=== PATIENT | female | born 1995 | race Caucasian/White ===

== ENCOUNTER → 2016-12-14 | Outpatient (CLI) | payer BC ==
--- NOTE | 2016-12-15 08:47 | REP ---
MAXILLOFACIAL CT WITHOUT CONTRAST: HISTORY: Right mandible tumor. COMPARISON: 08/03/2016. Minimal mucosal thickening is present in the maxillary and left sphenoid sinuses. The remaining sinuses are clear. The ostiomeatal units are patent. The middle and inferior nasal turbinates are partially paradoxical. There is sánchez bullosa of the middle nasal turbinates. The nasal septum is midline. The cribriform plate, medial quinn of the orbits and optic canals are intact. The carotid canals form a segment of the posterolateral quinn of the sphenoid sinus. There is thickening of the posterior body and angle of the right mandible at the site of the previously noted destructive lesion. This area contains mineralized bone matrix. The overlying cortex is thin however intact. This area measures approximately 1.1 cm in transverse x 2.8 cm in AP x 2.8 cm in cephalocaudal dimensions and is unchanged compared to the previous study. There is no periosteal reaction. There is no associated soft tissue component. The surrounding soft tissues are intact. IMPRESSION: 1. Sinus mucosal thickening as described above. 2. There is no recurrent tumor at the site of the previously noted destructive lesion in the posterior body and angle of the right mandible. Signed by Doug Moura MD 12/15/2016 08:56 A
== END ==
LOC: M RAD 17:24
DX: D16.5 Benign neoplasm of lower jaw bone (principal)

== ENCOUNTER → 2017-02-10 | Outpatient (CLI) | payer BC ==
[2017-02-10 20:10] LABS: BASO % 0.7 % (0.0-1.0); EOS # 0.1 K/mm3 (0.0-0.50); EOS % 1.1 % (0.0-3.0); LARGE UNSTAINED CELL # 0.1 K/mm3 (0.0-0.4); LARGE UNSTAINED CELL % 1.6 % (0.0-4.0); LYMPH # 2.5 K/mm3 (1.5-6.5); LYMPH % 32.8 % (24.0-44.0); MEAN CORPUSCULAR HEMOGLOBIN 28.4 pg (27.0-33.0); MEAN CORPUSCULAR HGB CONC 32.6 g/dl (32.0-36.5); MEAN CORPUSCULAR VOLUME 87.1 fl (80.0-96.0); MONO # 0.4 K/mm3 (0.0-0.8); MONO % 6.2 % (0.0-5.0); NEUTROPHILS # 4.1 K/mm3 (1.8-7.7); NEUTROPHILS % 57.6 % (36.0-66.0); PLATELET COUNT, AUTOMATED 175 k/mm3 (150-450); RED CELL DISTRIBUTION WIDTH 14.9 % (11.5-14.5); WHITE BLOOD COUNT 7.2 K/mm3 (4.0-10.0)
[2017-02-10 20:43] LABS: VITAMIN B12 LEVEL 1467 PG/ML (247-911)
[2017-02-10 20:53] LABS: ALBUMIN 4.1 GM/DL (3.2-5.2); ALBUMIN/GLOBULIN RATIO 1.46 (1.00-1.93); ALKALINE PHOSPHATASE 109 U/L (45-117); ALT/SGPT 90 U/L (12-78); ANION GAP 11 MEQ/L (8-16); AST/SGOT 41 U/L (15-37); BILIRUBIN,TOTAL 0.5 MG/DL (0.2-1.0); BLOOD UREA NITROGEN 8 MG/DL (7-18); CALCIUM LEVEL 9.2 MG/DL (8.5-10.1); CARBON DIOXIDE LEVEL 27 MEQ/L (21-32); CHLORIDE LEVEL 99 MEQ/L (98-107); CREATININE FOR GFR 0.86 MG/DL (0.55-1.02); FERRITIN 36 NG/ML (8-252); GLOMERULAR FILTRATION RATE > 60.0 (>60); GLUCOSE, FASTING 86 MG/DL (70-105); PERCENT SATURATION 18.3 % (13.2-37.4); PHOSPHORUS LEVEL 3.6 MG/DL (2.5-4.9); POTASSIUM SERUM 3.6 MEQ/L (3.5-5.1); SODIUM LEVEL 137 MEQ/L (136-145); TOTAL IRON BINDING CAPACITY 268 UG/DL (250-450); TOTAL PROTEIN 6.9 GM/DL (6.4-8.2)
[2017-02-12 10:11] LABS: PRETREATED FOLATE FOR RBCFOL 17.8 NG/ML
== END ==
LOC: M WUC 17:56
PROVIDERS: ATTEND Surgery
DX: K91.2 Postsurgical malabsorption, not elsewhere classified (principal); Z98.84 Bariatric surgery status

== ENCOUNTER → 2017-03-24 | Outpatient (CLI) | payer BC ==
--- NOTE | 2017-03-24 18:36 | REP ---
MAXILLOFACIAL CT WITHOUT CONTRAST: HISTORY: Tumor. COMPARISON: 12/14/2016 Minimal mucosal thickening is present in the maxillary sinuses. Mild mucosal thickening is present in the right sphenoid sinus. The remaining sinuses are clear. The ostiomeatal units are patent. The middle and inferior nasal turbinates are partially paradoxical. There is sánchez bullosa of the middle nasal turbinates. The nasal septum is midline. The cribriform plate, medial quinn of the orbits and optic canals are intact. The carotid canals form a segment of the posterolateral quinn of the sphenoid sinus. There is thickening of the posterior body and angle of the right mandible at the site of a previously noted destructive lesion. The area contains mineralized bone matrix. The overlying cortex is thin, however, intact. This area measures approximately 1.1 cm in transverse x 2.8 cm in AP x 2.6 cm in cephalocaudal dimensions and is unchanged in size compared to the previous study. There is no periosteal bone reaction. There is no soft tissue component. The surrounding tissues are intact. IMPRESSION: 1. Sinus mucosal thickening as described above. 2. There is no recurrent tumor at the site of a previously noted destructive lesion in the posterior body and angle of the right mandible. Signed by Doug Moura MD 03/24/2017 07:20 P
== END ==
LOC: M RAD 17:15
PROVIDERS: ATTEND Nurse Practitioner Family
DX: D16.5 Benign neoplasm of lower jaw bone (principal)

== ENCOUNTER → 2017-09-30 | Outpatient (CLI) | payer BC | LOC: M RAD 16:37 | DX: C96.6 Unifocal Langerhans-cell histiocytosis (principal) | CPT/HCPCS: 77075 ==

== ENCOUNTER → 2018-01-03 | Outpatient (CLI) | payer BC ==
[2018-01-03 19:42] LABS: BASO # 0.1 10^3/uL (0.0-0.2); BASO % 0.6 % (0.0-1.0); EOS % 0.5 % (0.0-3.0); HEMATOCRIT 40.1 % (36.0-47.0); HEMOGLOBIN 13.4 g/dl (12.0-15.5); IMMATURE GRANULOCYTE % 0.2 % (0-3.0); LYMPH # 2.9 10^3/uL (1.5-6.5); LYMPH % 34.8 % (24.0-44.0); MEAN CORPUSCULAR HEMOGLOBIN 31.1 pg (27.0-33.0); MEAN CORPUSCULAR HGB CONC 33.4 g/dl (32.0-36.5); MONO # 0.4 10^3/uL (0.0-0.8); MONO % 5.2 % (0.0-5.0); NEUTROPHILS # 4.9 10^3/uL (1.8-7.7); NEUTROPHILS % 58.7 % (36.0-66.0); PLATELET COUNT, AUTOMATED 265 10^3/uL (150-450); RED BLOOD COUNT 4.31 10^6/uL (4.00-5.40); RED CELL DISTRIBUTION WIDTH 12.3 % (11.5-14.5); WHITE BLOOD COUNT 8.3 10^3/uL (4.0-10.0)
[2018-01-03 20:07] LABS: ALBUMIN 4.2 GM/DL (3.2-5.2); ALBUMIN/GLOBULIN RATIO 1.35 (1.00-1.93); ALKALINE PHOSPHATASE 109 U/L (45-117); ALT/SGPT 23 U/L (12-78); ANION GAP 5 MEQ/L (8-16); AST/SGOT 13 U/L (7-37); BILIRUBIN,TOTAL 0.4 MG/DL (0.2-1.0); BLOOD UREA NITROGEN 9 MG/DL (7-18); CALCIUM LEVEL 9.3 MG/DL (8.5-10.1); CARBON DIOXIDE LEVEL 31 MEQ/L (21-32); CHLORIDE LEVEL 106 MEQ/L (98-107); CREATININE FOR GFR 0.81 MG/DL (0.55-1.30); FERRITIN 38 NG/ML (8-252); GLOMERULAR FILTRATION RATE > 60.0 (>60); GLUCOSE, FASTING 85 MG/DL (70-100); IRON (FE) 73 UG/DL (50-170); MAGNESIUM LEVEL 2.3 MG/DL (1.8-2.4); PHOSPHORUS LEVEL 4.5 MG/DL (2.5-4.9); POTASSIUM SERUM 4.8 MEQ/L (3.5-5.1); SODIUM LEVEL 142 MEQ/L (136-145); TOTAL PROTEIN 7.3 GM/DL (6.4-8.2)
[2018-01-03 20:14] LABS: TOTAL 25(OH) VITAMIN D 44.1 NG/ML (30.0-100.0)
[2018-01-03 20:15] LABS: FOLATE 16.5 NG/ML (>5.4); VITAMIN B12 LEVEL 423 PG/ML (247-911)
[2018-01-03 21:33] LABS: ESTIMATED AVERAGE GLUCOSE 97 MG/DL (60-110)
== END ==
LOC: M WUC 16:53
DX: K91.2 Postsurgical malabsorption, not elsewhere classified (principal); Z98.84 Bariatric surgery status
CPT/HCPCS: 82746

== ENCOUNTER → 2018-01-24 | Outpatient (CLI) | payer BC ==
[2018-01-24 16:01] LABS: CONTROL LINE HCG INT CTR LINE PRESENT; HCG, SERUM QUALITATIVE POSITIVE (NEGATIVE)
== END ==
LOC: M LAB 15:09
DX: N91.2 Amenorrhea, unspecified (principal)
CPT/HCPCS: 84703

== ENCOUNTER → 2018-11-25 | Outpatient (CLI) | payer BC, MEDICAID ==
--- NOTE | 2018-11-25 17:36 | REP ---
Maxillofacial CT study: Without contrast. 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 Comparison CT study is from September 30, 2017. CT study from November 21, 2015 showed a expansile lytic lesion with aggressive periosteal reaction at the angle of the mandible on the right. CT findings: There is no evidence of recurrent bone destruction in the mandible. The mandibular angle appears intact. No new bony destructive lesion is seen. Right nasal jewelry is noted. The paranasal sinuses are clear. No intraorbital lesion is seen. No skull base lesion is observed. Impression: There is no evidence to suggest recurrent bone destruction at the site of the previously treated right mandibular angle lesion or elsewhere. Findings are unchanged from comparison studies. No soft tissue mass or adenopathy is seen. Electronically Signed by Rosas Navarro MD 11/25/2018 06:59 P
--- NOTE | 2018-11-25 18:36 | REP ---
Skeletal survey for a round cell histiocytosis: Comparison is 09/30/2017. Skull AP and lateral views: There are no lytic or blastic lesions. Mineralization is normal. Cervical spine, thoracic spine and lumbar spine AP and lateral views: There are no lytic or blastic lesions. Mineralization is normal. Bilateral humeri, ribs, AP pelvis and bilateral femurs: There are no lytic or blastic lesions. Mineralization is normal. Impression: Negative skeletal survey. No interval change. Electronically Signed by Brennen Ba MD 11/25/2018 06:27 P
== END ==
LOC: M RAD 16:19
DX: C96.6 Unifocal Langerhans-cell histiocytosis (principal)

== ENCOUNTER → 2020-06-10 | Outpatient (CLI) | payer BC, MEDICAID ==
--- NOTE | 2020-06-19 10:25 | REP ---
MAXILLOFACIAL CT STUDY WITHOUT CONTRAST HISTORY: Langerhans cell histiocytosis. COMPARISON: 11/25/2018. TECHNIQUE: Helical scanning is acquired and 3-mm axial images are reformatted. Coronal and sagittal MPR images are generated. CT FINDINGS: The angle of the mandible is free of bony destructive disease, although the body of the mandible is not completely included in the anterior mental region of the mandible is not completely included in the field of view. Previous study from 2016 showed a destructive lesion in the angle of the mandible on the right. This has resolved. There is no evidence of upper cervical lymphadenopathy. No intraorbital abnormality is seen. No other bony destructive lesion is appreciated. Right-sided nasal jewelry is noted incidentally. The paranasal sinuses are clear. Bony nasal septum is midline. Nasal turbinate soft tissues are unremarkable. No orbital abnormality is seen. The visualized intracranial structures are intact. IMPRESSION: The mandible is not completely included in the imaging field of view, but there is no evidence to suggest recurrent or residual bony destructive lesion at the angle of the mandible on the right. Otherwise unremarkable maxillofacial CT study. MTDD
--- NOTE | 2020-06-19 10:26 | REP ---
ADULT BONE SURVEY CLINICAL: Langerhans cell histiocytosis. COMPARISON: 11/25/2018 FINDINGS: AP and lateral view skull: Osseous structures are intact. No focal lytic, blastic, or obvious abnormal osseous lesion is appreciated. AP and lateral cervical spine: Cervical vertebral bodies and spinous processes are intact. No acute fracture or dislocation. No abnormal lytic, blastic, or abnormal osseous lesions are appreciated. Surrounding soft tissues are normal. Bilateral humeri: Osseous structures and joint spaces are normal. No lytic, blastic, or abnormal osseous lesions are appreciated. AP pelvis: Osseous structures are intact and normal. Hip joints are normal. No abnormal lesions. AP and lateral femurs: Osseous structures and joint spaces are normal. No abnormal osseous lesions are appreciated. Thoracic spine AP and lateral: Alignment and kyphosis maintained. Vertebral bodies intact and normal. No abnormal lytic, blastic, or osseous abnormalities are appreciated. Lumbosacral spine AP and lateral: Vertebral bodies are intact and demonstrate normal lordosis. No acute fracture/compression injury or subluxation. No lytic, blastic, or abnormal osseous lesions are appreciated. IMPRESSION: Normal adult bone survey. MTDD
--- NOTE | 2020-06-19 10:26 | REP ---
NONCONTRAST CHEST CT CLINICAL: Langerhans cell histiocytosis. COMPARISON: 01/05/2019. TECHNIQUE: Axial noncontrast images from the thoracic inlet to the upper abdomen with coronal and sagittal reformations. FINDINGS: The bilateral lung huff are well-aerated and clear. No consolidation, significant nodule, or mass lesion appreciated. No effusion or pneumothorax. Tracheobronchial tree is patent. No obvious axillary, hilar, or mediastinal adenopathy is appreciated. Further evaluation of the mediastinum demonstrates a normal thoracic aorta, pulmonary vasculature, and heart/pericardium. Thyroid gland again demonstrates a 1 cm hypodense nodule/cyst in the left lobe unchanged. Surrounding musculoskeletal structures are intact and without acute osseous abnormality. Limited upper abdomen demonstrates evidence for prior gastric bypass and normal bilateral adrenal glands. IMPRESSION: * No acute mediastinal or pleural parenchymal process. * Stable 1 cm hypodense lesion in the left thyroid lobe likely a cyst and unchanged. MTDD
== END ==
LOC: M RAD 16:36
DX: C96.6 Unifocal Langerhans-cell histiocytosis (principal)

== ENCOUNTER → 2022-02-20 | Outpatient (CLI) | payer OTHER ==
[~2022-02-20] MED LIST: ISOVUE-370 76% 100ML VIAL As Ordered ONE
== END ==
LOC: M RAD 16:06
DX: Z85.830 Personal history of malignant neoplasm of bone (principal)
CPT/HCPCS: 70487; Q9967

== ENCOUNTER → 2022-11-17 | Outpatient (REF) | payer OTHER ==
[2022-11-17 12:49] LABS: HEMATOCRIT 29.2 % (36.0-47.0); HEMOGLOBIN 8.6 g/dl (12.0-15.5); MEAN CORPUSCULAR HEMOGLOBIN 21.2 pg (27.0-33.0); MEAN CORPUSCULAR HGB CONC 29.5 g/dl (32.0-36.5); MEAN CORPUSCULAR VOLUME 71.9 fl (80.0-96.0); PLATELET COUNT, AUTOMATED 291 10^3/uL (150-450); RED BLOOD COUNT 4.06 10^6/uL (4.00-5.40); WHITE BLOOD COUNT 7.1 10^3/uL (4.0-10.0)
[2022-11-17 14:59] LABS: HEPATITIS B SURFACE ANTIGEN NEGATIVE (NEGATIVE)
[2022-11-17 15:12] LABS: HIV 1&2 SCREEN CENTAUR NEGATIVE (NEGATIVE)
[2022-11-17 15:20] LABS: HEPATITIS C VIRUS ABY INDEX < 0.0 INDEX (<0.8)
[2022-11-17 15:22] LABS: HCG, SERUM QUANTITATIVE 85481.5 MIU/ML (<4.2)
== END ==
LOC: M LAB REF 12:18
PROVIDERS: ATTEND Obstetrics & Gynecology
DX: Z32.01 Encounter for pregnancy test, result positive (principal); O36.80X0 Pregnancy with inconclusive fetal viability, not applicable or unspecified